=== PATIENT | female | born 1970 ===

== ENCOUNTER 2023-03-08 20:47 | Inpatient (IN) | payer OTHER, SELFPAY ==
[2023-03-08] VITALS (9 sets, daily range): BP systolic 84–105; BP diastolic 44–64; PULSE 98–148; RESP 17–22; TEMP 36.4–36.7; O2SAT 100; BMI 24.0
--- NOTE | ~2023-03-08 | CT_ITS ---
EXAMINATION: CT ABDOMEN AND PELVIS WITHOUT AND WITH CONTRAST -GI BLEED STUDY CLINICAL INFORMATION: Status post polypectomy with heavy GI bleed COMPARISON: None TECHNIQUE: Multidetector volumetric imaging was performed from the superior aspect of the liver through the pubic symphysis with intravenous contrast. A total of 80 mL of Omnipaque 350 was utilized for the study. Sagittal and coronal reformatted images were obtained on the technologist's workstation. This CT examination was performed using dose optimization techniques as appropriate, variously including the following: *Automated exposure control *Adjustment of mA and/or kV according to patient size (this includes techniques or standardized protocols for targeted exams where dose is matched to indication/reason for exam; i.e. extremities or head) *Use of iterative reconstruction technique DLP: 801 mGy-cm FINDINGS: LUNG BASES: The visualized lung bases are unremarkable. LIVER, GALLBLADDER, AND BILIARY TREE: The liver is normal in size, shape, and attenuation. No focal hepatic lesion or biliary ductal dilatation is present. The gallbladder is unremarkable with no evidence of radiopaque gallstones, gallbladder wall thickening, or obvious pericholecystic inflammatory changes. PANCREAS: Unremarkable. SPLEEN: Unremarkable. ADRENAL GLANDS: Unremarkable. KIDNEYS AND URETERS: The kidneys are normal in size, shape, and attenuation. There are small punctate calculi present in the left kidney the largest measuring 3 mm at the upper pole (10:79). No hydronephrosis, hydroureter, or right-sided calculi seen. No perinephric stranding. BLADDER: Unremarkable. GASTROINTESTINAL TRACT: There are clips present in the distal descending colon, transverse colon as well as the cecum. Presumably this is from the patient's recent colonoscopy. No evidence of extravasation of contrast is seen into bowel lumen on either the arterial phase imaging or the two-minute delayed imaging. The small and large bowel are unremarkable. The appendix is unremarkable. ABDOMINAL WALL: No significant hernia is appreciated. LYMPH NODES: No retroperitoneal lymphadenopathy. VASCULAR: There is no evidence of GI bleeding as described above. The abdominal aorta and visualized iliofemoral vessels appear unremarkable aside from some minimal calcific plaque in the infrarenal aorta and common iliac arteries without stenosis or aneurysm.. The celiac and SMA and CHRISTINE are patent. A single right-sided renal artery and 2 left-sided renal arteries, widely patent. PELVIC VISCERA: The retroverted uterus and adnexa are unremarkable. OSSEOUS STRUCTURES: Unremarkable. CT/CT gi bleed abd pel wo/w IVcon IMPRESSION: 1. No evidence of GI bleeding status post recent polypectomy. 2. Incidental note made of nonobstructing left renal calculi. Fleischner guidelines were followed.
--- NOTE | ~2023-03-08 | XR_ITS ---
EXAMINATION: XR CHEST CLINICAL INFORMATION: Central line placement COMPARISON: None available. TECHNIQUE: Frontal view of the chest was obtained. FINDINGS: Right jugular line projects over SVC. The cardiac and mediastinal contours are normal. Bilateral segmental atelectasis. Lungs are otherwise clear. No pleural effusion or pneumothorax. No acute bone pathology. XR/XR chest 1V IMPRESSION: Right jugular line projects over SVC. No pneumothorax. Bilateral subsegmental atelectasis.
--- NOTE | 2023-03-08 20:55 | ED_ITS ---
HPI - General Adult General Chief complaint: Abdominal Pain Stated complaint: colonoscopy today/bleeding Time Seen by Provider: 03/08/23 21:14 Source: patient Mode of arrival: ambulatory Limitations: no limitations Related Data Allergies Allergy/AdvReac Type Severity Reaction Status Date / Time Crustaceans Allergy Mild RASH Uncoded 11/01/19 15:12 [facility], [facility] Past Medical History Medical History (Updated 03/08/23 @ 21:17 by Bria Zacarias MD) Hyperlipidemia Physical Exam ED Vital Signs: Vital Signs - 24 hr 03/08/23 20:56 03/08/23 21:15 03/08/23 21:44 Temperature 97.7 F Pulse Rate 148 H 119 H 113 H Respiratory Rate 20 19 20 Blood Pressure 85/59 L 85/57 L 89/56 L Pulse Oximetry 100 100 100 Oxygen Delivery Method Room Air Room Air Room Air 03/08/23 22:00 Temperature Pulse Rate 123 H Respiratory Rate 18 Blood Pressure 97/58 L Pulse Oximetry 100 Oxygen Delivery Method Room Air BMI result Body Mass Index 24.0 Course Course Course Narrative: RME: 52 year-old F w/ PMHx presenting to the ED c/o bright red rectal bleeding since 13:00 w/assoc abdominal pain s/p routine colonoscopy today at [facility]. Patient was d/c around 10AM (Pt states they found multiple polyps that they snipped) pale, hypotensive/Tachy. Charge nurse made aware Labs, UA, occult stool ordered Full HPI, ROS and PE to be performed by primary ED provider. Medications Administered Discontinued Medications Generic Name Dose Route Start Last Admin Trade Name Freq PRN Reason Stop Dose Admin Ondansetron HCl 4 mg 03/08/23 22:02 03/08/23 22:03 Ondansetron Odt 4 Mg Tab.Rapdis TRANSLINGU 03/08/23 22:03 4 mg ONCE ONE Administration
--- NOTE | 2023-03-08 21:15 | ED.ABDPAIN ---
HPI - Abdominal Pain General Chief Complaint: Abdominal Pain Stated Complaint: colonoscopy today/bleeding Time Seen by Provider: 03/08/23 21:14 Source: patient Mode of arrival: ambulatory Limitations: no limitations History of Present Illness HPI narrative: Patient comes to the emergency room complaining of feeling lightheaded and having rectal bleeding. Patient states that earlier today she had her 1st colonoscopy at [facility]. Patient had 20 polyps removed. Patient states that after she was discharged from the hospital, she started having significant amount of rectal bleeding. Patient states that she took the ambulance to [facility]. However, they put her in the waiting room and they asked her to wait for at least 5 hours. Patient states that she was feeling lightheaded and about to pass out, she called her son and ask him to bring her to the emergency room here at [place]. Patient denies any abdominal pain. Patient states that she feels weak. Related Data Allergies Allergy/AdvReac Type Severity Reaction Status Date / Time Crustaceans Allergy Mild RASH Uncoded 11/01/19 15:12 Review of Systems Review of Systems Constitutional : No Weight loss, No Fever, No Chills, No Night Sweats, No Fatigue, No Malaise ENT/Mouth : No Hearing loss, No Ear Pain, No Nasal Congestion, No Sinus Pain, No Hoarseness, No sore throat, No Rhinorrhea, No Swallowing Difficulty Eyes: No Eye Pain, No Swelling, No Redness, No Foreign Body, No Discharge, No Vision Changes Cardiovascular : No Chest Pain, No SOB, No Dyspnea on Exertion, No Orthopnea, No Edema, No Palpitations, complaining of lightheadedness, no syncopal episodes Respiratory : No Cough, No Sputum, No Wheezing, No Smoke Exposure, No Dyspnea Gastrointestinal : No nausea vomiting or diarrhea, no abdominal pain, complaining of bloody bowel movements and passing blood clot Genitourinary : no irregular bleeding, No Dysuria, No Urinary Frequency, No Hematuria, No Urinary Incontinence, No Urgency, No Flank Pain, No Urinary Flow Changes, No Hesitancy Musculoskeletal : No joint pain, No Myalgias, No Joint Swelling Skin : No Skin Lesions, No rash Neuro : No Weakness, No Numbness, No Paresthesias, No Loss of Consciousness, No Dizziness, No Headache Psych : No Anxiety/Panic, No Depression, No SI/HI/AH/VH, No Social Issues, Heme/Lymph: No Bruising, No Bleeding,No Lymphadenopathy Endocrine : No Polyuria, No Polydipsia, No Temperature Intolerance [facility] Past Medical History Medical History (Updated 03/08/23 @ 22:16 by Bria Zacarias MD) Hyperlipidemia Social History Social History Advance Directives: No Advance Directives Information Provided: No Physical Exam ED Vital Signs: Vital Signs - 24 hr 03/08/23 20:56 03/08/23 21:15 03/08/23 21:44 Temperature 97.7 F Pulse Rate 148 H 119 H 113 H Respiratory Rate 20 19 20 Blood Pressure 85/59 L 85/57 L 89/56 L Pulse Oximetry 100 100 100 Oxygen Delivery Method Room Air Room Air Room Air 03/08/23 22:00 03/08/23 22:30 Temperature Pulse Rate 123 H 100 Respiratory Rate 18 18 Blood Pressure 97/58 L 87/64 L Pulse Oximetry 100 100 Oxygen Delivery Method Room Air Room Air BMI result Body Mass Index 24.0 Const Other: Appearance: Alert. Oriented X3. No acute distress. Eyes: Pupils equal, round and reactive to light. ENT: Pharynx normal. Neck: Normal inspection. Neck supple. No lymph nodes noted. No crepitus CVS: Tachycardic. Pulses normal. Normal S1 and S2 Respiratory: No respiratory distress. Breath sounds normal. No Wheezing. No rales Abdomen: Soft and nontender. No rigidity. No distention. Skin: Pale, cool to touch, Normal skin color. Normal skin turgor. Extremities: No lower extremity edema. No Lacerations. No Rash Neuro: Oriented X 3. No motor deficit. No sensory deficit. Moving all extremities. No slurred speech. CN 2 through 12 grossly intact Psych: calm, cooperative, normal affect Procedures Central Line Placement Right IJ: Time Out Performed: Yes Patient Placed on Monitor/Pulse Ox: Yes MD Prep: mask, gown and gloves Central Line Prep: Chlorhexidine scrub Local Anesthetic: lidocaine 1% Amount of anesthesia used (mL): 5 Ultrasound Used for Placement: Yes Central Line Lumen Inserted: triple Post Procedure: sutured in place, good blood return, all ports aspirated, flushed, capped and sterile dressing applied Post Procedure X-Ray: tip of catheter in good position and no pneumothorax seen Patient Tolerated Procedure: well and no complications Complications: none Course Course Course Narrative: RME: 52 year-old F w/ PMHx presenting to the ED c/o bright red rectal bleeding since 13:00 w/assoc abdominal pain s/p routine colonoscopy today at [facility]. Patient was d/c around 10AM (Pt states they found multiple polyps that they snipped) pale, hypotensive/T -on arrival, patient feeling lightheaded, blood pressure in triage 85/59, heart rate 148 -patient receiving IV fluids, all of the labs pending, patient may need a blood transfusion. Medical Decision Making Medical Decision Making MDM Narrative: -informed by the patient's nurse that the patient is a difficult stick and they have difficulty obtaining labs and putting a line. -I discussed with the patient that given the nature of her ED visit, she will likely need different blood drawn and also will need fluids and possibly even blood. -patient agreeable to central line placement -if the patient's hemoglobin is low or if it keeps dropping, patient agreeable to a blood transfusion. I discussed with the patient the risks versus benefits of a blood transfusion. At this time we do not have the hemoglobin levels available. -all of patient's labs and CT scan pending -2 units of blood have been ordered -last set of vitals at 22:50: Blood pressure 97/55, heart rate 95 -we received records from [facility], however, they did not send over any previous labs. We do not know patient's baseline hemoglobin. Either way, patient will be receiving blood, as she is likely actively bleeding -my interpretation of labs: White blood cell count 17.4. Hemoglobin 10.3, hematocrit 30.5. Platelets 264. Occult stool test is positive. sign out given to Dr. Tavera Differential Diagnosis Differential Diagnoses: The differential diagnosis associated with the presentation includes (GI bleed from polypectomy) Admission/Observation Consideration of admission/observation: Escalation of care including admission/observation considered (Patient will need admission and GI consult) Lab Data MDM Lab Attestation statement: I reviewed the patient's lab results. 03/08/23 22:17 03/08/23 22:17 Labs: Lab Results 03/08/23 03/08/23 03/08/23 Range/Units 21:40 22:17 22:19 WBC 17.4 H (4.8-10.8) X10*3/uL RBC 3.37 L (4.20-5.50) X10*6/uL Hgb 10.3 L (12.0-16.0) g/dl Hct 30.5 L (37.0-47.0) % MCV 90.5 (80.0-98.0) fL MCH 30.6 (27.0-33.0) pg MCHC 33.8 (31.0-35.0) g/dl RDW 15.1 (11.0-16.0) % Plt Count 264 (160-400) X10*3/uL MPV 11.3 (9.4-12.3) fL Immature Gran % (Auto) 0.5 H (0.0-0.4) % Neut % (Auto) 87.0 H (45-73) % Lymph % (Auto) 9.2 L (20-40) % [place] % (Auto) 3.0 (2-11) % Eos % (Auto) 0.1 (0-4) % Baso % (Auto) 0.2 (0-2) % Lymph # (Auto) 1.6 (1.2-4.9) X10*3/uL [place] # (Auto) 0.5 (0.1-1.2) X10*3/uL Eos # (Auto) 0.0 (0.0-0.4) X10*3/uL Baso # (Auto) 0.0 (0.0-0.2) X10*3/uL Abs Immat Gran (auto) 0.09 H (0.00-0.03) X10*3/uL Absolute Neuts (auto) 15.2 H (2.0-8.3) x10*3/uL Absolute Nucleated RBC 0.000 (0.0-0.012) X10*3/uL Nucleated RBC % (auto) 0.0 (0.0-0.2) /100WBC PT 13.0 (11.1-13.3) SEC INR 1.1 (0.9-1.1) Sodium 140 (135-145) mmol/L Potassium 3.9 (3.3-5.1) mmol/L Chloride 108 (96-108) mmol/L Carbon Dioxide 23 (22-29) mmol/L Anion Gap 13 (12-20) BUN 12 (9-16) mg/dL Creatinine 0.86 (0.5-1.4) mg/dL Estim Creat Clear Calc 75.2 Estimated GFR > 60 Random Glucose 184 H (60-115) mg/dL Calcium 8.6 (8.4-10.2) mg/dL Magnesium 1.9 (1.6-2.6) mg/dL Total Bilirubin 0.7 (0.0-1.0) mg/dL Direct Bilirubin 0.2 (0.0-0.5) mg/dL AST 23 (5-31) U/L ALT 35 H (0-31) U/L Alkaline Phosphatase 78 (39-117) U/L Total Protein 6.3 L (6.5-8.0) g/dL Albumin 3.6 (3.5-5.0) g/dL Lipase 20 (8-78) U/L Stool Occult Blood POSITIVE (NEGATIVE) Blood Type O Positive Antibody Screen NEGATIVE External Record Review External record reviewed: Other GI records from [facility] Medications Administered Discontinued Medications Generic Name Dose Route Start Last Admin Trade Name Freq PRN Reason Stop Dose Admin Sodium Chloride 1,000 mls @ 999 mls/hr 03/08/23 21:15 03/08/23 22:29 Ns IV 03/08/23 22:15 999 mls/hr .Q1H1M MOUNA Administration Ondansetron HCl 4 mg 03/08/23 22:02 03/08/23 22:03 Ondansetron Odt 4 Mg Tab.Rapdis TRANSLINGU 03/08/23 22:03 4 mg ONCE ONE Administration Critical Care Time Critical Care Time Critical Care Time: Yes Total Critical Care Time: 90 Attestation: I have personally provided critical care time. Time includes review of lab data, radiology results, discussion with consultants, and monitoring for potential decompensation. Intervention performed as documented. Discharge Plan Discharge Clinical Impression: GI bleed Patient Disposition: Admitted As Inpatient
[2023-03-08] MEDS: Ondansetron ODT 4 MG TAB.RAPDIS TRANSLINGU (22:03)
[2023-03-08 22:26] LABS: Basophils Percent Auto 0.2 % (0-2); Eosinophils Percent Auto 0.1 % (0-4); Hematocrit 30.5 % (37.0-47.0); Hemoglobin 10.3 g/dl (12.0-16.0); Imm Gran Abs Auto 0.09 X10*3/uL (0.00-0.03); Imm Gran Pct Auto 0.5 % (0.0-0.4); Lymphocytes Absolute Auto 1.6 X10*3/uL (1.2-4.9); Lymphocytes Percent Auto 9.2 % (20-40); MANUAL DIFF FLAG NO; Mean Corpuscular HGB Conc 33.8 g/dl (31.0-35.0); Mean Corpuscular Hemoglobin 30.6 pg (27.0-33.0); Mean Corpuscular Volume 90.5 fL (80.0-98.0); Mean Platelet Volume 11.3 fL (9.4-12.3); Monocytes Absolute Auto 0.5 X10*3/uL (0.1-1.2); Neutrophils Absolute Auto 15.2 x10*3/uL (2.0-8.3); Platelet Count 264 X10*3/uL (160-400); Red Blood Count 3.37 X10*6/uL (4.20-5.50); Red Cell Distribution Width 15.1 % (11.0-16.0); White Blood Count 17.4 X10*3/uL (4.8-10.8)
[2023-03-08] MEDS: 0.9 % Sodium Chloride 1,000 ML 999 ML IV (22:29)
[2023-03-08 22:33] LABS: OBS Int Ctl Valid YES; OBS1 POSITIVE (NEGATIVE)
[2023-03-08 22:41] LABS: Alanine Aminotransferase 35 U/L (0-31); Albumin Level 3.6 g/dL (3.5-5.0); Alkaline Phosphatase 78 U/L (39-117); Anion Gap 13 (12-20); Aspartate Amino Transferase 23 U/L (5-31); Bilirubin Direct 0.2 mg/dL (0.0-0.5); Bilirubin Total 0.7 mg/dL (0.0-1.0); Blood Urea Nitrogen 12 mg/dL (9-16); Calcium 8.6 mg/dL (8.4-10.2); Carbon Dioxide 23 mmol/L (22-29); Chloride 108 mmol/L (96-108); Creatinine Clr Calc Pharmacy 75.2; Estimated Glomerular Filt Rate > 60; Glucose Random 184 mg/dL (60-115); Lipase 20 U/L (8-78); Magnesium 1.9 mg/dL (1.6-2.6); Potassium 3.9 mmol/L (3.3-5.1); Sodium 140 mmol/L (135-145); Total Protein 6.3 g/dL (6.5-8.0)
[2023-03-08 22:45] LABS: INTERNATIONAL NORM RATIO 1.1 (0.9-1.1)
[2023-03-09] VITALS (24 sets, daily range): BP systolic 91–115; BP diastolic 42–70; PULSE 76–107; RESP 12–21; TEMP 36.4–37; O2SAT 95–100; BMI 24.0; BMI 25.8
[2023-03-09] MEDS: iohexoL 350 MG/ML 100 ML INFUS..BTL 80 ML IV (00:06)
[2023-03-09] MEDS: 0.9 % Sodium Chloride 1,000 ML 100 ML IVCONT ×2 (04:09→15:52)
[2023-03-09 04:21] LABS: Hematocrit 31.5 % (37.0-47.0); Hemoglobin 10.7 g/dl (12.0-16.0)
--- NOTE | 2023-03-09 05:25 | P.HPHOSP_ITS ---
History of Present Illness Date of Service: 03/09/23 Attending physician on admission: Ghulam López Chief Complaint: Rectal bleeding Lin Kaur is a 52 years old woman with past medical history significant for hyperlipidemia presents to the emergency department complaining of multiple episodes of bright red blood per rectum that started yesterday around 13:00. Associated symptoms she feels lightheaded but denied any episode of loss of consciousness. She underwent a colonoscopy yesterday morning at [facility]. Patient stated on multiple polyps were removed. She denies any abdominal pain, nausea or vomiting. She has not taking any blood thinner. She denied any chest pain, shortness on breath or palpitations. Initially, patient was taken to [facility] but she left as she has to wait for a long time. In the ED, she was found to have significant tachycardia or hypotension. Her blood workup is remarkable for leukocytosis of 17.4. INR is normal. Renal function is normal and there is no significant electrolyte imbalances. She received 2 units of PRBC's. Last hemoglobin (4 am) is 10.7. Abdominal pelvis CT scan showed no evidence of GI bleeding status post recent polypectomy an incidental nonobstructing left renal calculi. CXR showed right jugular line projecting over the SVC, no pneumothorax. There are bilateral subsegmental atelectasis. According to ED physician case has been discussed with GI service recommending to give patient Golytely for colonoscopy in a.m. Review of Systems 2 Review of Systems: All 12 systems were reviewed and normal except as noted in HPI. [facility] Medical History (Updated 03/09/23 @ 05:43 by Ghulam López MD) Hyperlipidemia Social History Patient Tobacco Use Status: Former Tobacco user Meds Allergies Allergy/AdvReac Type Severity Reaction Status Date / Time Crustaceans Allergy Mild RASH Uncoded 11/01/19 15:12 Active Medications: Current Medications Sodium Chloride (Ns) 1,000 mls @ 100 mls/hr IVCONT .Q10H MOUNA Last Admin: 03/09/23 04:09 Dose: 100 mls/hr Sodium Chloride (0.9 % Sodium Chloride Flush 3 Ml Syringe) 3 ml IVFLUSH QSHIFT [facility] Physical Exam 2 Vital Signs and Narrative: Vital Signs: Last Vital Signs Temp 97.9 F 03/09/23 04:19 Pulse 80 03/09/23 04:19 Resp 20 03/09/23 04:19 BP 105/62 03/09/23 04:19 Pulse Ox 100 03/09/23 03:46 O2 Del Method Room Air 03/09/23 03:46 BMI result Body Mass Index 24.0 Constitutional - Awake and Alert, No apparent distress. Acutely ill. HEENT - Atraumatic, normocephalic. Dry oral mucosa Heart - RRR, normal rhythm. No edema Respiratory - Normal lung expansion, Normal respiratory effort, No respiratory distress, CTA bilaterally Gastrointestinal - NT / ND; +BS; No rebound or guarding Extremities - no calf tenderness bilaterally, no swelling Musculoskeletal - Normal inspection, normal ROM Skin - Warm/Dry. Pale. Neurological - Alert & oriented x3. Psychological - Appropriate affect Results Labs 03/09/23 04:14 03/08/23 22:17 Labs: Laboratory Results - last 24 hr 03/08/23 03/08/23 03/08/23 21:40 22:17 22:19 MCV 90.5 MCH 30.6 MCHC 33.8 RDW 15.1 Plt Count 264 MPV 11.3 Immature Gran % (Auto) 0.5 H Neut % (Auto) 87.0 H Lymph % (Auto) 9.2 L [place] % (Auto) 3.0 Eos % (Auto) 0.1 Baso % (Auto) 0.2 Lymph # (Auto) 1.6 [place] # (Auto) 0.5 Eos # (Auto) 0.0 Baso # (Auto) 0.0 Abs Immat Gran (auto) 0.09 H Absolute Neuts (auto) 15.2 H Absolute Nucleated RBC 0.000 Nucleated RBC % (auto) 0.0 PT 13.0 INR 1.1 Anion Gap 13 Estim Creat Clear Calc 75.2 Estimated GFR > 60 Random Glucose 184 H Calcium 8.6 Magnesium 1.9 Total Bilirubin 0.7 Direct Bilirubin 0.2 AST 23 ALT 35 H Alkaline Phosphatase 78 Total Protein 6.3 L Albumin 3.6 Lipase 20 Stool Occult Blood POSITIVE Blood Type O Positive Antibody Screen NEGATIVE Crossmatch See Detail Imaging Radiologist's Impressions: Impressions Chest X-Ray 03/08/23 22:23 IMPRESSION: Right jugular line projects over SVC. No pneumothorax. Bilateral subsegmental atelectasis. Abdomen/Pelvis CT 03/09/23 00:14 IMPRESSION: 1. No evidence of GI bleeding status post recent polypectomy. 2. Incidental note made of nonobstructing left renal calculi. Fleischner guidelines were followed. Assessment and Plan (1) GI bleed: Status: Acute (2) Acute blood loss anemia: Status: Acute Plan Lin Kaur is a 52 years old woman admitted with: * Rectal bleeding s/p multiple polypectomies. Admit to hospitalist service. Keep NPO. Telemetry. Start IV fluids. Continue to monitor H&H. We will continue to transfuse PRBC as needed. GI consult (recommended Gabe for colonoscopy in a.m.). * Anemia secondary to above. Continue to monitor H&H. PRBC transfusion as needed (hemorrhagic shock, hemoglobin<7). * Hyperlipidemia. Continue statin when able. DVT prophylaxis: SCDs only. Pharmacological DVT prophylaxis contraindicated due to acute rectal bleeding. Code status: Full. Patient will need hospitalization for at least 2 midnight for acute rectal bleeding treatment. Patient will need evaluation by GI for colonoscopy and blood transfusions. Quality Stroke Does the patient have a stroke diagnosis?: No VTE Prior VTE?: No VTE Risk Level:: Medical - moderate - high VTE Device Contraindication: N/A - Device Ordered VTE Drug Contraindication: Treatment Not Indicated
--- NOTE | 2023-03-09 05:35 | PC.NURSE ---
MD is aware that bowel prep med has not been available due to pharmacy not being in house. verbal ok to start once med becomes available.
--- NOTE | 2023-03-09 06:15 | P.CNGI_ITS ---
History of Present Illness Data of Consult Service Date: 03/09/23 Requesting physician: Ghulam López Primary Care Provider: Unknown Physician HPI Reason for consult: Post polypectomy bleed 52 YF with hyperlipidemia seen at [facility] ED on 03/08/23 with multiple episodes of bright red blood per rectum that started around 13:00 on 03/08/23 associated with dizziness. Pt reports she had a colonoscopy at 9 am on 03/08/23 at [facility] and 20 polyps were removed (she was told some clips were placed). She was discharge home at 10:30 and took some mashed plantains and 2 cokes at 11:30 am and went to sleep. She woke up at 1 pm and passed BRBPR with some clots followed by 10 -12 additional episodes. Pt reports going to [facility] ER at 19:30 by ambulance and was told there was 4-5 hour wait before she could be seen. Pt came to [facility] ED since she was feeling lightheaded and felt she was going to pass out (no LOC). Pt complains of some abdominal discomfort and denies nausea or vomiting, chest pain, shortness on breath or palpitations. She denies taking a blood thinner, NSAIDS or aspirin. Since arrival to the ER, pt had a few small BMs containing deep red blood and denies additional BMs/bleeding since 10 pm last night. Patient denies any cardiac or pulmonary problems or history of loud snoring or sleep apnea She denies smoking or ETOH abuse. Family history: Positive for colon cancer in a maternal aunt who in her 60s. Patient's mom of ovarian cancer. 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 In the ED, she was found to have significant tachycardia and hypotension. Labs showed leukocytosis of 17.4. INR 1.1, H & H of 10.3 & 30.5 She received 2 units of PRBC's. FU H&H (4 am) is 10.7 & 31.5 03/08/23 CT ANGIO SHOWED: 1. No evidence of GI bleeding status post recent polypectomy. 2. Incidental note made of nonobstructing left renal calculi. Review of Systems 2 Review of Systems: Yes all other systems are reviewed and are negative PMFSH Past Medical History Medical History Encounter for screening colonoscopy Hyperlipidemia Social History Social History Household Members: Children Housing: Apartment Do you presently have visiting nurse or other home services: No Patient Tobacco Use Status: Former Tobacco user Quit Date: 2 weeks ago service: No Meds Allergies Allergy/AdvReac Type Severity Reaction Status Date / Time Crustaceans Allergy Mild RASH Uncoded 03/09/23 12:39 Active Medications: Current Medications Sodium Chloride (Ns) 1,000 mls @ 100 mls/hr IVCONT .Q10H [facility] Last Admin: 03/09/23 04:09 Dose: 100 mls/hr Sodium Chloride (0.9 % Sodium Chloride Flush 3 Ml Syringe) 3 ml IVFLUSH QSHIFT [facility] Home Medications Medication Instructions Recorded Confirmed Last Taken Type atorvastatin 10 mg tablet 10 mg PO DAILY 03/09/23 03/09/23 Unknown History Physical Exam 2 Vital Signs: Vital Signs: Last Vital Signs Temp 98.2 F 03/09/23 06:11 Pulse 78 03/09/23 06:11 Resp 12 03/09/23 06:11 BP 94/64 03/09/23 06:11 Pulse Ox 100 03/09/23 06:11 O2 Del Method Room Air 03/09/23 06:11 BMI result Body Mass Index 24.0 Const: General: no acute distress Nutritional Appearance: average body habitus Orientation/consciousness: patient oriented x3 Limitations: no limitations HEENT: Head: Yes normal to inspection Ears: hearing grossly normal bilaterally Eyes: Sclerae: sclerae normal Pupils: Equal, round and reactive pupils present Neck: Neck: Yes normal visual inspection Chest: Chest palpation & inspection: normal inspection of the chest Resp: Effort & Inspection: normal respiratory effort Auscultation: clear to auscultation bilaterally Cardio: Palpation: normal PMI Rate: regular rate Rhythm: regular rhythm Heart sounds: S1 normal heart sound present, S2 normal heart sound present and no murmurs GI: Palpation (GI): Soft to palpation, nontender and No hepatosplenomegaly present Auscultation: normal bowel sounds Rectal Exam - Female: deferred Skin: General skin exam: no rashes or lesions noted Neuro: General: patient oriented x3, gait normal and moves all extremities Cranial nerves: Yes Equal, round and reactive pupils present Psych: Appearance: grossly normal Mental Status: mental status grossly normal Results Labs 03/10/23 09:04 03/08/23 22:17 Labs: Short CBC 03/08/23 03/09/23 Range/Units 22:17 04:14 WBC 17.4 H (4.8-10.8) X10*3/uL Hgb 10.3 L 10.7 L (12.0-16.0) g/dl Hct 30.5 L 31.5 L (37.0-47.0) % Plt Count 264 (160-400) X10*3/uL BMP 03/08/23 22:17 Sodium 140 Potassium 3.9 Chloride 108 Carbon Dioxide 23 BUN 12 Creatinine 0.86 Calcium 8.6 Liver Function 03/08/23 Range/Units 22:17 Total Bilirubin 0.7 (0.0-1.0) mg/dL Direct Bilirubin 0.2 (0.0-0.5) mg/dL AST 23 (5-31) U/L ALT 35 H (0-31) U/L Alkaline Phosphatase 78 (39-117) U/L Albumin 3.6 (3.5-5.0) g/dL Assessment and Plan (1) GI bleed: Status: Acute (2) Acute blood loss anemia: Status: Acute Plan 52 YF with hyperlipidemia admitted to [facility] ED on 03/08/23 with multiple episodes of bright red blood per rectum that started around 13:00 on 03/08/23 associated with dizziness. Pt reports she had a colonoscopy at 9 am on 03/08/23 at [facility] and 20 polyps were removed (she was told some clips were placed). (Colonoscopy report obtained from [facility], reviewed and scanned into the patient's medical record) She woke up at 1 pm and passed BRBPR with some clots followed by 10 -12 additional episodes. In the ED, she was found to have significant tachycardia and hypotension. Labs showed leukocytosis of 17.4. INR 1.1, H & H of 10.3 & 30.5 She received 2 units of PRBC's. FU H&H (4 am) is 10.7 & 31.5 Lower GI bleeding post colonoscopy and multiple polypectomies - likely post polypectomy bleed RECOMMENDATIONS. 1. Agree with IV antiemetics 2. Monitor CBC twice a day x 24 hrs 3. Pt is scheduled for a colonoscopy today 2-3 hours after Golytely prep is completed. Colonoscopy procedure and potential complications including bleeding, perforation, reaction to anesthetics were reviewed with the patient. Since bleeding had subsided, patient was given option of continued monitoring with the labs. She preferred to proceed with colonoscopy. Procedures Date of Service Date of Service: 03/12/23
[2023-03-09] MEDS: PEG 3350/Na Sulf,Bicarb,Cl/KCL 4,000 ML SOLN.RECON 4000 ML PO (07:28)
--- NOTE | 2023-03-09 08:35 | PC.NURSE ---
patient sitting up in bed, educated on bowel prep, patient is alert and oriented able to demonstrate understanding of bowel prep. patient vital signs stable, skin warm and dry. patient respirations equal and unlabored. call corey within reach.
--- NOTE | 2023-03-09 08:53 | PHA.MEDREC ---
Pharmacy Consult ? Medication Reconciliation Pharmacy has completed the medication reconciliation. Spoke to patient at bedside, states she only takes the atorvastatin but has not taken it in a few weeks due to illness.
--- NOTE | 2023-03-09 09:52 | MHC.CM.PN ---
PT SELF-CARE, LIVES AT HOME WITH HER 3 CHILDREN, WHO WILL TRANSPORT HER HOME AT D/C. HCP DECLINED AT THIS TIME. PCP: DR. HAI BETH
[2023-03-09 10:23] LABS: Hematocrit 32.7 % (37.0-47.0); Hemoglobin 11.4 g/dl (12.0-16.0)
--- NOTE | 2023-03-09 12:35 | PC.NURSE ---
patient transport here to get patient for colonoscopy.
--- NOTE | 2023-03-09 13:00 | P.CONAN_ITS ---
HPI - Anesthesia Eval Consult details Narrative: 52 yo F admitted with post-polypectomy bleed. PMFSH Active Problems Active Problems: All Active Problems (Updated 03/09/23 @ 12:36 by Jessica Cummings RN) Acute blood loss anemia (Acute) GI bleed (Acute) Hypertension (Acute) Past Medical History Medical History (Updated 03/09/23 @ 12:36 by Jessica Cummings RN) Encounter for screening colonoscopy Hyperlipidemia Family History Family history of problems with anesthesia: No Surgical History History of Problems with Anesthesia: No Social History Social History Patient Tobacco Use Status: Former Tobacco user Quit Date: 2 weeks ago Use of substances other than those prescribed or required for medical reasons: No Are you DNR?: No Advance Directives: No Advance Directives Information Provided: No Nutrition Risks: No Nutritional Risk service: No Meds Allergies Allergy/AdvReac Type Severity Reaction Status Date / Time Crustaceans Allergy Mild RASH Uncoded 03/09/23 12:39 Active Medications: Current Medications Sodium Chloride (Ns) 1,000 mls @ 100 mls/hr IVCONT .Q10H [facility] Last Admin: 03/09/23 04:09 Dose: 100 mls/hr Sodium Chloride (0.9 % Sodium Chloride Flush 3 Ml Syringe) 3 ml IVFLUSH QSHIFT [facility] Last Admin: 03/09/23 07:33 Dose: Not Given Home Medications Medication Instructions Recorded Confirmed Last Taken Type atorvastatin 10 mg tablet 10 mg PO DAILY 03/09/23 03/09/23 Unknown History Exam Exam Date and Time: March 09, 2023 1300 Height,Weight and Vital Signs: Height 5 ft 7 in Weight 69.6 kg Last Vital Signs Temp 98.1 F 03/09/23 12:45 Pulse 98 03/09/23 12:45 Resp 16 03/09/23 12:45 BP 115/70 03/09/23 12:45 Pulse Ox 98 03/09/23 12:45 O2 Del Method Room Air 03/09/23 12:45 Pertinent Lab Results Pertinent Lab Results: Laboratory Tests 03/08/23 03/08/23 03/08/23 21:40 22:17 22:19 WBC 17.4 H RBC 3.37 L Hgb 10.3 L Hct 30.5 L MCV 90.5 MCH 30.6 MCHC 33.8 RDW 15.1 Plt Count 264 MPV 11.3 Immature Gran % (Auto) 0.5 H Neut % (Auto) 87.0 H Lymph % (Auto) 9.2 L [place] % (Auto) 3.0 Eos % (Auto) 0.1 Baso % (Auto) 0.2 Lymph # (Auto) 1.6 [place] # (Auto) 0.5 Eos # (Auto) 0.0 Baso # (Auto) 0.0 Abs Immat Gran (auto) 0.09 H Absolute Neuts (auto) 15.2 H Absolute Nucleated RBC 0.000 Nucleated RBC % (auto) 0.0 PT 13.0 INR 1.1 Sodium 140 Potassium 3.9 Chloride 108 Carbon Dioxide 23 Anion Gap 13 BUN 12 Creatinine 0.86 Estim Creat Clear Calc 75.2 Estimated GFR > 60 Random Glucose 184 H Calcium 8.6 Magnesium 1.9 Total Bilirubin 0.7 Direct Bilirubin 0.2 AST 23 ALT 35 H Alkaline Phosphatase 78 Total Protein 6.3 L Albumin 3.6 Lipase 20 Stool Occult Blood POSITIVE Blood Type O Positive Antibody Screen NEGATIVE Crossmatch See Detail 03/09/23 03/09/23 04:14 10:14 WBC RBC Hgb 10.7 L 11.4 L Hct 31.5 L 32.7 L MCV MCH MCHC RDW Plt Count MPV Immature Gran % (Auto) Neut % (Auto) Lymph % (Auto) [place] % (Auto) Eos % (Auto) Baso % (Auto) Lymph # (Auto) [place] # (Auto) Eos # (Auto) Baso # (Auto) Abs Immat Gran (auto) Absolute Neuts (auto) Absolute Nucleated RBC Nucleated RBC % (auto) PT INR Sodium Potassium Chloride Carbon Dioxide Anion Gap BUN Creatinine Estim Creat Clear Calc Estimated GFR Random Glucose Calcium Magnesium Total Bilirubin Direct Bilirubin AST ALT Alkaline Phosphatase Total Protein Albumin Lipase Stool Occult Blood Blood Type Antibody Screen Crossmatch Airway Mallampati Class: I TM Dist: >3cm Denture: Upper Loose/Missing/Broken Teeth: No Heart: S1S2 Lungs: CTAB Assessment and Plan Assessment Anesthesia Assessment: Anesthesia Plan Discussed and Chart Reviewed Final Anesthetic Review Family History of Problems with Anesthesia: No History of Problems with Anesthesia: No NPO: Yes ASA Class: II Final Preanesthetic Review: No Changes in Pt Med Stat, Meds/Allgs Chart Reviewed, Consent Obtained/Reviewed and Anes Risks/Benef Reviewed Patient Risk: Low Procedure Risk: Low Anesthetic Plan Anesthetic Plan: MAC: and Agree w/ Assess. and Plan Disposition: Standard PACU
--- NOTE | 2023-03-09 14:11 | P.OP_ITS ---
Operative Note Operative Note Date of Service: 03/09/23 Narrative: COLONOSCOPY TILL CECUM WITH HEMOCLIP PLACEMENT Pre-op diagnosis: Post polypectomy bleed Post-op diagnosis:?same, multiple ulcers at polypectomy sites, diverticulosis Endoscopist:? Stoney Mitchell MD Anesthesia:?MAC Consent: Indications for the procedure and potential complications of bleeding, perforation, reaction to medications and missed diagnosis were discussed with the patient and informed consent was obtained. Instrument: Olympus PCF H 190 L variable stiffness pediatric colonoscope Monitoring: Vital signs and clinical assessment, intermittent blood pressure monitoring, continuous EKG monitoring, Pulse oximetry and Carbon Dioxide monitoring were done throughout the procedure. Please see anesthesia flowsheet. Colon withdrawl time was 25 minutes. Procedure: The patient was placed in the left lateral decubitis position and pre-procedure medications were administered. After a digital rectal examination of the ano-rectum, the video colonoscope was inserted into the rectum and advanced through the colon to the cecum. The colonoscope was slowly withdrawn in a retrograde panoramic fashion and the colon mucosa was carefully examined including a retroflexed view of the rectum. Findings and interventions are described below. Procedure Difficulty: Without difficulty Findings: Terminal Ileum: Not evaluated Cecum: Two 5-7 mm clean based ulcers without stigmata of recent bleeding. A 10-12 mm ulcer with casanova red spots - (possible source of recent bleeding). 1 Hemoclip was placed. Hemoclip placed during colonoscopy yesterday was not visualized in the cecum - likely dislodged Ascending Colon: Multiple clean based ulcers (at sites of recent polypectomies) visualized without stigmata of recent bleeding. Transverse Colon: Multiple clean based ulcers (at sites of recent polypectomies) visualized without stigmata of recent bleeding Descending Colon: Polypectomy site visualized at 60 cms with [address]. A 10-12 mm ulcer with casanova red spots - (possible source of recent bleeding). 2 Hemoclips were placed. Sigmoid Colon: Moderate diverticulosis Rectum: A 15 mm clean based ulcer (at site of recent polypectomies) visualized without stigmata of recent bleeding. Some bleeding noted in the rectum after colonoscope was retroflexed (? due to scope trauma) and controlled with placement of 1 hemoclip Ano-rectum: Normal Colon preparation: Good [place] Bowel Preparation Scale Right colon; 2 Transverse colon: 2 Left colon; 2 (0 = Unprepared colon segment with mucosa not seen due to solid stool that cannot be cleared. 1 = Portion of mucosa of the colon segment seen, but other areas of the colon segment not well seen due to staining, residual stool and/or opaque liquid. 2 = Minor amount of residual staining, small fragments of stool and/or opaque liquid, but mucosa of colon segment seen well. 3 = Entire mucosa of colon segment seen well with no residual staining, small fragments of stool or opaque liquid) Impression and Post Procedure Diagnosis: Colonoscopy Findings: Multiple clean based ulcers (at sites of recent polypectomies) visualized without stigmata of recent bleeding. A 10-12 mm ulcer with casanova red spots in the cecum - (possible source of recent bleeding). 1 Hemoclip was placed. Hemoclip placed during colonoscopy yesterday was not visualized in the cecum - likely dislodged A 10-12 mm ulcer with casanova red spots in the descending colon- (possible source of recent bleeding). 2 Hemoclips were placed. Some bleeding noted in the rectum after colonoscope was retroflexed (due to scope trauma) and controlled with placement of 1 hemoclip Mild diverticulosis seen in the sigmoid colon Plan: Repeat CBC tonight and tomorrow am. OK to discharge home in the a.m. if no further bleeding and CBCs stable. 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
--- NOTE | 2023-03-09 14:16 | P.EN_ITS ---
Event Note Date of Service: 03/09/23 Event Note: Being followed for rectal bleeding post polypectomy Denies further episodes of bleeding, drinking GoLYTELY with frequent bowel movements Denies fever chills no nausea no vomiting, complaining of abdominal cramps before moving bowels Repeat hematocrit stable On examination patient awake alert in no acute distress Vitals stable Abdomen soft nontender Extremities no edema Lin Kaur is a 52 years old woman admitted with: Acute rectal bleeding s/p multiple polypectomies, no recurrent episode of bleeding this a.m. Continue NPO/seen by gastroenterology will undergo colonoscopy this afternoon continue GoLYTELY Monitor H&H received 2 units of packed RBC hematocrit improved. Anemia due to acute rectal bleeding status post 2 units of packed RBC hematocrit improved from 30.5 -32.7 Hyperlipidemia. Hold statins DVT prophylaxis: SCDs only. Code status: Full. Patient will need hospitalization for at least 2 midnight for acute rectal ble eding treatment. Patient will need evaluation by GI for colonoscopy and blood transfusions. Time Spent With Patient Time: Total time managing care of this patient today ____ minutes.
[2023-03-09 18:28] LABS: Hematocrit 30.4 % (37.0-47.0); Hemoglobin 10.5 g/dl (12.0-16.0)
[2023-03-10] MEDS: 0.9 % Sodium Chloride 1,000 ML 100 ML IVCONT (01:40)
[2023-03-10 03:36] VITALS: BP 108/59; PULSE 88; RESP 18; TEMP 36.6; O2SAT 97
[2023-03-10 07:39] VITALS: BP 124/62; PULSE 97; RESP 20; TEMP 37.2; O2SAT 99
[2023-03-10 09:10] LABS: Hematocrit 29.5 % (37.0-47.0); Hemoglobin 10.1 g/dl (12.0-16.0); Mean Corpuscular HGB Conc 34.2 g/dl (31.0-35.0); Mean Corpuscular Hemoglobin 30.8 pg (27.0-33.0); Mean Corpuscular Volume 89.9 fL (80.0-98.0); Mean Platelet Volume 11.7 fL (9.4-12.3); Platelet Count 169 X10*3/uL (160-400); Red Blood Count 3.28 X10*6/uL (4.20-5.50); Red Cell Distribution Width 14.6 % (11.0-16.0); White Blood Count 9.7 X10*3/uL (4.8-10.8)
--- NOTE | 2023-03-10 10:56 | PM.DS ---
DS: Providers Provider Date of Service: 03/10/23 Date of admission: 03/09/23 03:03 Primary care physician: Keila Campa MD Consults: 03/09/23 03:09 Consult to Gastroenterology Routine Consulting Provider: Stoney Mitchell Reason for consultation: Rectal bleeding Has provider been notified: Yes DS: Diagnosis Discharge Diagnosis (1) GI bleed: Status: Acute (2) Acute blood loss anemia: Status: Acute DS: Summary Hospital Course Hospital Course: History of presenting illness: Date of Service: 03/09/23 Attending physician on admission: Ghulam López Chief Complaint: Rectal bleeding Lin Kaur is a 52 years old woman with past medical history significant for hyperlipidemia presents to the emergency department complaining of multiple episodes of bright red blood per rectum that started yesterday around 13:00. Associated symptoms she feels lightheaded but denied any episode of loss of consciousness. She underwent a colonoscopy yesterday morning at [facility]. Patient stated on multiple polyps were removed. She denies any abdominal pain, nausea or vomiting. She has not taking any blood thinner. She denied any chest pain, shortness on breath or palpitations. Initially, patient was taken to [facility] but she left as she has to wait for a long time. In the ED, she was found to have significant tachycardia or hypotension. Her blood workup is remarkable for leukocytosis of 17.4. INR is normal. Renal function is normal and there is no significant electrolyte imbalances. She received 2 units of PRBC's. Last hemoglobin (4 am) is 10.7. Abdominal pelvis CT scan showed no evidence of GI bleeding status post recent polypectomy an incidental nonobstructing left renal calculi. CXR showed right jugular line projecting over the SVC, no pneumothorax. There are bilateral subsegmental atelectasis. According to ED physician case has been discussed with GI service recommending to give patient Golytely for colonoscopy in a.m. Hospital course: 52-year-old female patient admitted to [facility] with a diagnosis of acute symptomatic anemia due to lower GI bleed patient had multiple episodes of bright red blood per rectum associated with lightheadedness, symptoms started after she underwent colonoscopy with removal of multiple polyps, patient received 2 units of packed RBC with appropriate rise in hematocrit patient was seen in consultation by Dr. Mitchell and underwent colonoscopy That showed 10 to 12mm casanova red spots in the cecum , descending colon possible source of recent bleeding hemoclips were placed, she was noted to have some bleeding in the rectum after colonoscope was retroflexed, she also had mild diverticulosis, patient repeat hematocrit is stable she is tolerating diet and has had no recurrent rectal bleed in last 24 hours therefore she is being discharged home with recommendation to have close outpatient follow-up with her primary sql database administrator at [facility]. In regard to hyperlipidemia recommend to continue Lipitor. Time Attestation Discharge coordination time: Greater than 30 minutes Quality: Safe Use of Opioids Does Pt have an Active Cancer Diagnosis on the Problem List?: No Quality: Stroke Does the patient have a stroke diagnosis?: No Physical Exam Vital Signs: Vital Signs: Last Vital Signs Temp 98.9 F 03/10/23 07:39 Pulse 97 03/10/23 07:39 Resp 20 03/10/23 07:39 BP 124/62 03/10/23 07:39 Pulse Ox 99 03/10/23 07:39 O2 Del Method Room Air 03/10/23 07:39 BMI result Body Mass Index 25.8 Const: Other: General awake alert x3 resting comfortably in no acute distress. Neck supple, no JVD. CVS regular rate rhythm, Respiratory lungs clear to auscultation, no respiratory distress, no wheeze, no rhonchi. Gastrointestinal abdomen soft, non tender, bowel sounds audible, no guarding , no rigidity. Extremities no edema. Neuro nonfocal Skin no rash Psych appropriate affect DS: Data Data Completed and Pending Labs on day of discharge: Laboratory Results - last 24 hr 03/09/23 03/10/23 18:13 09:04 WBC 9.7 RBC 3.28 L Hgb 10.5 L 10.1 L Hct 30.4 L 29.5 L MCV 89.9 MCH 30.8 MCHC 34.2 RDW 14.6 Plt Count 169 D MPV 11.7 Absolute Nucleated RBC 0.000 Nucleated RBC % (auto) 0.0 Discharge Plan Discharge Anticipated Discharge Date/Time: 03/10/23 10:54 Patient Disposition: Home, Self-Care Discharge Diagnosis: Acute anemia due to lower GI bleed Referrals: Keila Quesada MD [Primary Care Provider] - 1 Week Discharge Medications: Continued atorvastatin 10 mg tablet 10 mg PO DAILY Discharge Orders: Discharge Order (Routine); Ordered 03/10/23 Ordered By: Rama Carnes Diet: Advance to usual diet Activity on Discharge: As tolerated Stand Alone Forms: Patient Portal Discharge page Care Plan Goals: No recurrent rectal bleed Hematocrit is stable Returned to check with recurrent episode of bleeding Health Concerns: Hyperlipidemia Plan of Treatment: Follow-up with sql database administrator at [facility] for follow-up colonoscopy in 6-12 months Assessment: As above
--- NOTE | 2023-03-10 10:59 | MHC.CM.PN ---
Pt has been medically cleared for DC, she will go home via private transport, DC plan is home, self care.
[2023-03-10 11:04] VITALS: BP 125/65; PULSE 96; RESP 20; TEMP 36.3; O2SAT 99
--- NOTE | 2023-03-10 15:03 | HO.POSTANES ---
Post Anesthesia Evaluation Post Anesthesia Evaluation Date of Service: 03/10/23 Vital Signs: Vital Signs Temp Pulse Resp BP Pulse Ox O2 Del Method 03/10/23 11:04 97.4 F 96 20 125/65 99 Room Air 03/10/23 07:39 98.9 F 97 20 124/62 99 Room Air 03/10/23 03:36 98 F 88 18 108/59 L 97 Room Air Anesthesia: Monitored Mental Status: Awake Pain Control: Satisfactory Nausea/Vomiting: None Hydration: Adequate Anesthesia-Related Issues: No Anes. Related Issues
== END 2023-03-10 12:42 | disposition home or self-care (01) | DRG 810 ==
LOC: HO.ED 23:06 → HO.EDOVER 03-09 03:13 → HO.IMC 03-09 14:49
PROVIDERS: Internal Medicine Gastroenterology; Physician Assistant; Admitting Provider Internal Medicine; Emergency Provider Student in an Organized Health Care Education/Training Program; PCP Internal Medicine; Visit Provider Hospitalist
PROC: 0DJD8ZZ Inspection of Lower Intestinal Tract, Via Natural or Artificial Opening Endoscopic (ICD-10-PCS; CPT 45378; principal; 2023-03-09 12:50)
DX: K91.840 Postprocedural hemorrhage of a digestive system organ or structure following a digestive system procedure (principal); E78.5 Hyperlipidemia, unspecified; Y83.8 Other surgical procedures as the cause of abnormal reaction of the patient, or of later complication, without mention of misadventure at the time of the procedure; D62 Acute posthemorrhagic anemia; K57.30 Diverticulosis of large intestine without perforation or abscess without bleeding; Z87.891 Personal history of nicotine dependence; Z79.899 Other long term (current) drug therapy
CPT/HCPCS: 36415; 71045; 74178; 80048; 80076; 82272; 83690; 83735; 85014; 85018; 85025; 85027; 85610; 86850; 86900; 86901; 86923; 99285; J2704; P9016; Q9967

== ENCOUNTER → 2023-03-09 03:03 | Outpatient (BNV) | payer OTHER, SELFPAY | PROVIDERS: Admitting Provider Internal Medicine; Emergency Provider Student in an Organized Health Care Education/Training Program; Visit Provider Internal Medicine | DX: K92.2 Gastrointestinal hemorrhage, unspecified (principal); D62 Acute posthemorrhagic anemia; E78.5 Hyperlipidemia, unspecified | CPT/HCPCS: 99223; 99239; 99499 ==

== ENCOUNTER → 2023-03-09 03:03 | Outpatient (BNV) | payer OTHER, SELFPAY | PROVIDERS: Admitting Provider Internal Medicine; Emergency Provider Student in an Organized Health Care Education/Training Program; PCP Internal Medicine; Visit Provider Internal Medicine Gastroenterology | DX: K57.90 Diverticulosis of intestine, part unspecified, without perforation or abscess without bleeding (principal); K63.5 Polyp of colon; K63.3 Ulcer of intestine | CPT/HCPCS: 45382; 99222 ==